=== PATIENT | male | born 1980 | race Hispanic/Latino ===

== ENCOUNTER 2019-06-13 17:53 | Emergency (ER) | payer OTHER ==
--- NOTE | 2019-06-13 18:04 | Event Note ---
ED Screening Note ED Screening Note: r flank pain hx stones hematuria pacing in triage vss no fever or chills This initial assessment/diagnostic orders/clinical plan/treatment(s) is/are subject to change based on patients health status, clinical progression and re- assessment by fellow clinical providers in the ED. Further treatment and workup at subsequent clinical providers discretion. Patient/guardian urged not to elope from the ED as their condition may be serious if not clinically assessed and managed. Initial orders include: labs and ua r/o stones
[2019-06-13 18:32] LABS: Bacteria,Urine 1+ /HPF (Negative); Bilirubin,Urine NEG (Negative); Blood,Urine LG (Negative); Color,Urine Straw (Yellow); Protein,Urine <15 mg/dL mg/dL (Negative); Urobilinogen,Urine < 2.0 mg/dL (<2.0); WBC,Urine < 1.0 /HPF (0.0-6.0)
[2019-06-13] MEDS ORDERED: ONDANSETRON 4 MG ODT TAB PO ONE (19:32)
[2019-06-13] MEDS ORDERED: HYDROcodone/ACETAMINOPHEN 10-325MG TAB PO ONE (19:32)
[2019-06-13 19:34] LABS: Basophils % (Auto) 0.4 % (0.0-1.8); Eosinophils % (Auto) 0.3 % (0.0-4.3); Hemoglobin 16.3 gm/dl (11.8-15.2); Lymphocytes # (Auto) 2.1 K/mm3 (1.2-5.4); Lymphocytes % (Auto) 22.1 % (13.4-35.0); Mean Corpuscular HGB Conc 34 % (32-34); Mean Corpuscular Volume 90 fl (84-94); Monocytes # (Auto) 0.7 K/mm3 (0.0-0.8); Monocytes % (Auto) 7.2 % (0.0-7.3); Platelet Count 248 K/mm3 (140-440); Red Blood Count 5.34 M/mm3 (3.65-5.03); Red Cell Distribution Width 13.2 % (13.2-15.2)
--- NOTE | 2019-06-13 19:40 | Cat Scan Report ---
CT ABDOMEN AND PELVIS WITHOUT CONTRAST INDICATION / CLINICAL INFORMATION: flank pain and hematuria . TECHNIQUE: Axial CT images were obtained through the abdomen and pelvis without IV contrast. All CT scans at [facility] location are performed using CT dose reduction for ALARA by means of automated exposure control. COMPARISON: None available. FINDINGS: LOWER CHEST: No significant abnormality. LIVER: No significant abnormality. GALLBLADDER: Multiple gallstones. No abnormal distention, wall thickening, or pericholecystic fluid. BILE DUCTS: No significant abnormality. PANCREAS: No significant abnormality. SPLEEN: No significant abnormality. ADRENALS: No significant abnormality. RIGHT KIDNEY and URETER: No significant abnormality. LEFT KIDNEY and URETER: No significant abnormality. STOMACH and SMALL BOWEL: No significant abnormality. COLON: No significant abnormality. APPENDIX: No significant abnormality. PERITONEUM: No free fluid. No free air. No fluid collection. LYMPH NODES: No adenopathy. AORTA and ARTERIES: No significant abnormality. IVC and VEINS: No significant abnormality. URINARY BLADDER: Mostly collapsed, limiting evaluation. No significant abnormality is seen. REPRODUCTIVE ORGANS: No significant abnormality. ADDITIONAL FINDINGS: None. SKELETAL SYSTEM: No acute finding. Indeterminate, homogeneous and mildly sclerotic, expansile lesion in the medullary cavity of the left ninth rib laterally is shown on series 2 images 23-60. No associa nicholas cortical destruction/thinning, periosteal reaction or soft tissue component. IMPRESSION: 1. Cholelithiasis. No evidence of acute cholecystitis within limitations of noncontrast CT. 2. Nonaggressive-appearing but indeterminate lesion in the left ninth rib possibly represents an enc hondroma. Radiographic correlation may be helpful as a baseline (rib series), and six-month follow-up may be performed to confirm stability. Signer Name: Bill Chapman MD Signed: 06/13/2019 7:35 PM Workstation Name: [id number]
[2019-06-13 19:47] LABS: Alanine Aminotransferase 24 units/L (7-56); Albumin 4.8 g/dL (3.9-5); BUN/Creatinine Ratio 14; Blood Urea Nitrogen 11 mg/dL (9-20); Calcium 9.3 mg/dL (8.4-10.2); Hemolysis Index 21
--- NOTE | 2019-06-13 20:26 | Emergency Department Report ---
ED General Adult HPI - General Chief complaint: Urogenital-Male Stated complaint: BLOOD IN URINE Time Seen by Provider: 06/13/19 18:03 Source: patient Mode of arrival: Ambulatory Limitations: No Limitations - History of Present Illness Initial comments: Patient is a 38-year-old male presents emergency room with complaints of right flank pain that radiates to his right side of his abdomen that began this morning. He states it woke him out of his sleep. He states it feels like an intermittent throbbing pain. He states that he also had hematuria. He states he has had this pain in the past and it was a kidney stone at that time. He denies any nausea, vomiting, diarrhea, fever, pain or swelling in the testicles. He has a past medical history of a kidney stone in 2013 which he states he passed on his own. He denies any allergies to medications. Severity scale (0 -10): 9 - Related Data Previous Rx's Medication Instructions Recorded Last Taken Type Ondansetron [Zofran Odt] 4 mg PO Q8HR PRN #10 tab.rapdis 06/13/19 Unknown Rx traMADoL [Ultram 50 MG tab] 50 mg PO Q6HR PRN #10 tablet 06/13/19 Unknown Rx Allergies Allergy/AdvReac Type Severity Reaction Status Date / Time No Known Allergies Allergy Verified 06/13/19 18:02 ED Review of Systems ROS: Stated complaint: BLOOD IN URINE Other details as noted in HPI Comment: All other systems reviewed and negative ED Past Medical Hx - Past Medical History Previous Medical History?: Yes Hx Kidney Stones: Yes - Surgical History Past Surgical History?: No - Social History Smoking Status: Current Some Day Smoker Substance Use Type: None - Medications Home Medications: Home Medications Medication Instructions Recorded Confirmed Last Taken Type Ondansetron [Zofran Odt] 4 mg PO Q8HR PRN #10 tab.rapdis 06/13/19 Unknown Rx traMADoL [Ultram 50 MG tab] 50 mg PO Q6HR PRN #10 tablet 06/13/19 Unknown Rx ED Physical Exam - General Limitations: No Limitations General appearance: alert, in no apparent distress - Head Head exam: Present: atraumatic, normocephalic - Eye Eye exam: Present: normal appearance - ENT ENT exam: Present: mucous membranes moist - Respiratory Respiratory exam: Present: normal lung sounds bilaterally. Absent: respiratory distress, wheezes, rales, rhonchi, stridor, chest wall tenderness, accessory muscle use, decreased breath sounds, prolonged expiratory - Cardiovascular Cardiovascular Exam: Present: regular rate, normal rhythm, normal heart sounds. Absent: systolic murmur, diastolic murmur, rubs, gallop - GI/Abdominal GI/Abdominal exam: Present: soft, tenderness (RLQ), normal bowel sounds. Absent: distended, guarding, rebound, rigid - Back Exam Back exam: Present: CVA tenderness (R) - Neurological Exam Neurological exam: Present: alert, oriented X3 - Psychiatric Psychiatric exam: Present: normal affect, normal mood - Skin Skin exam: Present: warm, dry, intact ED Course Vital Signs 06/13/19 06/13/19 06/13/19 18:03 19:52 20:46 Temperature 98.8 F Pulse Rate 106 H Respiratory 18 20 18 Rate Blood Pressure 172/107 Blood Pressure [Left] O2 Sat by Pulse 100 Oximetry 06/13/19 22:03 Temperature 98.3 F Pulse Rate 79 Respiratory 16 Rate Blood Pressure Blood Pressure 156/88 [Left] O2 Sat by Pulse 98 Oximetry ED Medical Decision Making - Lab Data Result diagrams: 06/13/19 19:06 06/13/19 19:06 Lab Results 06/13/19 06/13/19 06/13/19 Range/Units 18:14 19:06 19:06 WBC 9.7 (4.5-11.0) K/mm3 RBC 5.34 H (3.65-5.03) M/mm3 Hgb 16.3 H (11.8-15.2) gm/dl Hct 48.0 H (35.5-45.6) % MCV 90 (84-94) fl MCH 30 (28-32) pg MCHC 34 (32-34) % RDW 13.2 (13.2-15.2) % Plt Count 248 (140-440) K/mm3 Lymph % (Auto) 22.1 (13.4-35.0) % [place] % (Auto) 7.2 (0.0-7.3) % Eos % (Auto) 0.3 (0.0-4.3) % Baso % (Auto) 0.4 (0.0-1.8) % Lymph # 2.1 (1.2-5.4) K/mm3 [place] # 0.7 (0.0-0.8) K/mm3 Eos # 0.0 (0.0-0.4) K/mm3 Baso # 0.0 (0.0-0.1) K/mm3 Seg Neutrophils % 70.0 (40.0-70.0) % Seg Neutrophils # 6.8 (1.8-7.7) K/mm3 Sodium 142 (137-145) mmol/L Potassium 4.0 (3.6-5.0) mmol/L Chloride 103.5 (98-107) mmol/L Carbon Dioxide 24 (22-30) mmol/L Anion Gap 19 mmol/L BUN 11 (9-20) mg/dL Creatinine 0.8 (0.8-1.5) mg/dL Estimated GFR > 60 ml/min BUN/Creatinine Ratio 14 % Glucose 92 (75-100) mg/dL Calcium 9.3 (8.4-10.2) mg/dL Total Bilirubin 0.40 (0.1-1.2) mg/dL AST 19 (5-40) units/L ALT 24 (7-56) units/L Alkaline Phosphatase 82 (35-129) units/L Total Protein 7.1 (6.3-8.2) g/dL Albumin 4.8 (3.9-5) g/dL Albumin/Globulin Ratio 2.1 % Urine Color Straw (Yellow) Urine Turbidity Clear (Clear) Urine pH 7.0 (5.0-7.0) Ur Specific Adrian 1.004 (1.003-1.030) Urine Protein <15 mg/dl (Negative) mg/dL Urine Glucose (UA) Neg (Negative) mg/dL Urine Ketones Neg (Negative) mg/dL Urine Blood Lg (Negative) Urine Nitrite Neg (Negative) Urine Bilirubin Neg (Negative) Urine Urobilinogen < 2.0 (<2.0) mg/dL Ur Leukocyte Esterase Neg (Negative) Urine WBC (Auto) < 1.0 (0.0-6.0) /HPF Urine RBC (Auto) 29.0 (0.0-6.0) /HPF U Epithel Cells (Auto) 1.0 (0-13.0) /HPF Urine Bacteria (Auto) 1+ (Negative) /HPF Vital Signs 06/13/19 06/13/19 06/13/19 18:03 19:52 20:46 Temperature 98.8 F Pulse Rate 106 H Respiratory 18 20 18 Rate Blood Pressure 172/107 Blood Pressure [Left] O2 Sat by Pulse 100 Oximetry 06/13/19 22:03 Temperature 98.3 F Pulse Rate 79 Respiratory 16 Rate Blood Pressure Blood Pressure 156/88 [Left] O2 Sat by Pulse 98 Oximetry - Radiology Data Radiology results: report reviewed CT ABDOMEN AND PELVIS WITHOUT CONTRAST INDICATION / CLINICAL INFORMATION: flank pain and hematuria . TECHNIQUE: Axial CT images were obtained through the abdomen and pelvis without IV contrast. All CT scans at this location are performed using CT dose reduction for ALARA by means of automated exposure control. COMPARISON: None available. FINDINGS: LOWER CHEST: No significant abnormality. LIVER: No significant abnormality. GALLBLADDER: Multiple gallstones. No abnormal distention, wall thickening, or pericholecystic fluid. BILE DUCTS: No significant abnormality. PANCREAS: No significant abnormality. SPLEEN: No significant abnormality. ADRENALS: No significant abnormality. RIGHT KIDNEY and URETER: No significant abnormality. LEFT KIDNEY and URETER: No significant abnormality. STOMACH and SMALL BOWEL: No significant abnormality. COLON: No significant abnormality. APPENDIX: No significant abnormality. PERITONEUM: No free fluid. No free air. No fluid collection. LYMPH NODES: No adenopathy. AORTA and ARTERIES: No significant abnormality. IVC and VEINS: No significant abnormality. URINARY BLADDER: Mostly collapsed, limiting evaluation. No significant abnormality is seen. REPRODUCTIVE ORGANS: No significant abnormality. ADDITIONAL FINDINGS: None. SKELETAL SYSTEM: No acute finding. Indeterminate, homogeneous and mildly sclero tic, expansile lesion in the medullary cavity of the left ninth rib laterally is shown on series 2 images 23-60. No associated cortical destruction/thinning, periosteal reaction or soft tissue component. IMPRESSION: 1. Cholelithiasis. No evidence of acute cholecystitis within limitations of no ncontrast CT. 2. Nonaggressive-appearing but indeterminate lesion in the left ninth rib possibly represents an enchondroma. Radiographic correlation may be helpful as a baseline (rib series), and six-month follow-up may be performed to confirm stability. Signer Name: Bill Chapman MD Signed: 06/13/2019 7:35 PM Workstation Name: [id number] Transcribed By: FRANCISCO JAVIER Dictated By: Bill Chapman MD Electronically Authenticated By: Bill Chapman MD Signed Date/Time: 06/13/191934 DD/ 19 TD/TT: CT ABDOMEN AND PELVIS WITH CONTRAST INDICATION / CLINICAL INFORMATION: Right lower quadrant and right flank pain. TECHNIQUE: Axial CT images were obtained through the abdomen and pelvis after 100 mL Omnipaque [address] scans at this location are performed using CT dose reduction for ALARA by means of automated exposure control. COMPARISON: Noncontrast abdominal CT from earlier the same day FINDINGS: No acute finding or additional significant abnormality relative to those of the noncontrast CT performed earlier this evening. No appreciable enhancement of the left ninth rib lesion. Cholelithiasis is again noted. There remains no additional CT evidence of acute cholecystitis. The liver, adrenals, kidneys, spleen, and intestines demonstrate no acute abnormality. Normal appendix is again seen. IMPRESSION: 1. No acute abnormality or significant change. Cholelithiasis and left ninth rib lesion are again seen. Signer Name: Bill Chapman MD Signed: 06/13/2019 9:54 PM Workstation Name: [id number] Transcribed By: FRANCISCO JAVIER Dictated By: Bill Chapman MD Electronically Authenticated By: Bill Chapman MD Signed Date/Time: 06/13/192153 DD/ 48 TD/TT: - Medical Decision Making Patient is a 38-year-old male presents emergency room with complaints of right flank pain that radiates to his right side of his abdomen that began this morning. He states it woke him out of his sleep. He states it feels like an intermittent throbbing pain. He states that he also had hematuria. He states he has had this pain in the past and it was a kidney stone at that time. He denies any nausea, vomiting, diarrhea, fever, pain or swelling in the testicles. He has a past medical history of a kidney stone in 2013 which he states he passed on his own. He denies any allergies to medications. Initial vitals with elevated heart rate and blood pressure which improved upon repeat. Labs are normal. UA with red blood cells otherwise stable. On exam patient has right lower quadrant tenderness to palpation and right flank tenderness to percussion. CT abdomen pelvis without contrast: Cholelithiasis. No evidence of acute cholecystitis within limitations of noncontrast CT. 2. Nonaggressive-appearing but indeterminate lesion in the left ninth rib possibly represents an enchondroma. Radiographic correlation may be helpful as a baseline (rib series), and six-month follow-up may be performed to confirm stability. Patient given Crandall 10 and Zofran. On reassessment of patient, continues to have pain continues to look uncomfortable patient is stating that he still having the right lower quadrant pain. CT abdomen pelvis with contrast ordered to rule out appendicitis as patient still has his appendix. CT abd pelvis with contrast: 1. No acute abnormality or significant change. Cholelithiasis and left ninth rib lesion are again seen. Patient given 1 L IV fluids, Zofran, morphine and patient was feeling much better and ready to go home. Discussed all results with patient. Discussed that he would need to have a chest x-ray in 6 months d ue to rib lesion. Advised patient that he would need to follow-up with a general surgeon regarding gallstones. Patient verbalized understanding. Given prescription for tramadol and Zofran. Advised patient Please take medication as prescribed as needed. Do not drive or operate machinery while taking pain medication. Increase your water intake. Follow-up with a primary care doctor. Follow-up with a general surgeon regarding the gallstones. He will need to have a chest x-ray in 6 months to reevaluate the ribs. Return to the emergency room immediately for any new or worsening symptoms including but not limited to worsening back pain, worsening abdominal pain, high fevers, unable to tolerate by mouth intake, etc. - Differential Diagnosis Nephrolithiasis, pyelonephritis, appendicitis, colitis, obstruction, UTI Critical care attestation.: If time is entered above; I have spent that time in minutes in the direct care of this critically ill patient, excluding procedure time. ED Disposition Clinical Impression: Right flank pain, Rib lesion Cholelithiasis Qualifiers: Cholelithiasis location: gallbladder Cholecystitis presence: without cholecystitis Biliary obstruction: without biliary obstruction Qualified Code(s): K80.20 - Calculus of gallbladder without cholecystitis without obstruction Abdominal pain Qualifiers: Abdominal location: right lower quadrant Qualified Code(s): R10.31 - Right lower quadrant pain Disposition: TO HOME OR SELFCARE Is pt being admited?: No Does the pt Need Aspirin: No Condition: Stable Instructions: Cholelithiasis (ED), Abdominal Pain (ED), Flank Pain (ED) Additional Instructions: Please take medication as prescribed as needed. Do not drive or operate machinery while taking pain medication. Increase your water intake. Follow-up with a primary care doctor. Follow-up with a general surgeon regarding the gallstones. He will need to have a chest x-ray in 6 months to reevaluate the ri bs. Return to the emergency room immediately for any new or worsening symptoms including but not limited to worsening back pain, worsening abdominal pain, high fevers, unable to tolerate by mouth intake, etc. Prescriptions: traMADoL [Ultram 50 MG tab] 50 mg PO Q6HR PRN #10 tablet PRN Reason: Pain , Severe (7-10) Ondansetron [Zofran Odt] 4 mg PO Q8HR PRN #10 tab.rapdis PRN Reason: Nausea And Vomiting Referrals: RUPAL RUIZ MD [Staff Physician] - 3-5 Days [facility] [Provider Group] - 3-5 Days [facility] [Outside] - 3-5 Days ERASMO GARDNER DO [Staff Physician] - 3-5 Days Time of Disposition: 22:02 Print Language: [place]OU[place]
[2019-06-13] MEDS ORDERED: SODIUM CHLORIDE 0.9% 1000 ML 1,000 ML IV ONE (20:31)
[2019-06-13] MEDS ORDERED: ONDANSETRON 4 MG/2 ML INJ IV ONE (20:31)
[2019-06-13] MEDS ORDERED: MORPHINE 4 MG/1 ML INJ IV ONE (20:31)
--- NOTE | 2019-06-13 21:59 | Cat Scan Report ---
CT ABDOMEN AND PELVIS WITH CONTRAST INDICATION / CLINICAL INFORMATION: Right lower quadrant and right flank pain. TECHNIQUE: Axial CT images were obtained through the abdomen and pelvis after 100 mL Omnipaque [address] scans at this location are performed using CT dose reduction for ALARA by means of automated exposure control. COMPARISON: Noncontrast abdominal CT from earlier the same day FINDINGS: No acute finding or additional significant abnormality relative to those of the noncontrast CT perfor med earlier this evening. No appreciable enhancement of the left ninth rib lesion. Cholelithiasis is again noted. There remains no additional CT evidence of acute cholecystitis. The liver, adrenals, kidneys, spleen, and intestines demonstrate no acute abnormality. Normal appendi x is again seen. IMPRESSION: 1. No acute abnormality or significant change. Cholelithiasis and left ninth rib lesion are again se en. Signer Name: Bill Chapman MD Signed: 06/13/2019 9:54 PM Workstation Name: [id number]
[2019-06-13 22:04] VITALS: BP 156/88
== END 2019-06-13 22:20 | disposition home or self-care (01) ==
LOC: ED 17:53
DX: K80.20 Calculus of gallbladder without cholecystitis without obstruction (principal); L98.8 Other specified disorders of the skin and subcutaneous tissue; F17.200 Nicotine dependence, unspecified, uncomplicated
CPT/HCPCS: 36415; 74176; 74177; 80053; 81001; 85025; 96374; 96375; 99284; J2270; J2405; J7030; Q9967; Q0162